=== PATIENT | female | born 1970 | race Caucasian/White ===

== ENCOUNTER 2018-02-20 18:50 | Emergency (ER) | payer BC ==
[~2018-02-20] VITALS: Ht 165.1 cm; Wt 72.2 kg
[2018-02-20 19:00] VITALS: BP 142/96
[2018-02-20] MEDS ORDERED: NO HOME MEDS (20:14)
[2018-02-20] MEDS ORDERED: ketorolac trometh inj. 60 MG/2 ML VIAL IM ONE (20:40)
== END 2018-02-20 20:53 | disposition home or self-care (01) ==
LOC: ER 18:50
DX: M25.521 Pain in right elbow (principal); M25.552 Pain in left hip; Z88.0 Allergy status to penicillin; W01.0XXA Fall on same level from slipping, tripping and stumbling without subsequent striking against object, initial encounter; Y93.89 Activity, other specified; Y92.099 Unspecified place in other non-institutional residence as the place of occurrence of the external cause; Y99.9 Unspecified external cause status
CPT/HCPCS: 73080; 73502; 99284